=== PATIENT | male | born 2000 | race Caucasian/White ===

== ENCOUNTER 2024-02-10 20:57 | Emergency (ER) | payer OTHER ==
[~2024-02-10] VITALS: Ht 195.6 cm; Wt 94.8 kg
[2024-02-10 21:31] LABS: BILIRUBIN, URINE NEGATIVE (negative); BLOOD/HGB, URINE NEGATIVE (Negative); KETONE, URINE NEGATIVE (Negative); LEUK ESTERASE, URINE NEGATIVE (negative); NITRITE, URINE NEGATIVE (negative)
[2024-02-10 22:59] LABS: N. GONORRRHOEAE BY PCR NOT DETECTED (NOT DETECT)
[2024-02-10 23:55] VITALS: BP 138/76
== END 2024-02-10 23:56 | disposition home or self-care (01) ==
LOC: ED 20:57
PROVIDERS: Family Medicine
DX: I86.1 Scrotal varices (principal)
CPT/HCPCS: 76870; 81003